=== PATIENT | male | born 1930 | race African-American/Black ===

== ENCOUNTER 2018-02-20 08:43 | Inpatient (IN) | payer OTHER, BC ==
[~2018-02-20] VITALS: Ht 175.3 cm; Wt 63.7 kg
--- NOTE | ~2018-02-20 | 2DMMODE ---
[facility] [address] [place] [address] 2 D/M-MODE ECHOCARDIOGRAM Name: ED SCHMIDT Room #: 461-P ADM IN M.R.#: [id number] Admission: 02/20/18 Attend Phys: Jenn Foster MD Discharge: Date of : 32 Date of Service: 02/21/18 1414 Report #: [id number] THIS REPORT FOR: //name// APPROVED REPORT Study performed: 02/21/2018 12:40:23 EXAM: Comprehensive 2D, Doppler, and color-flow Echocardiogram Patient Location: Bedside Room #: 461 Status: routine BSA: 1.78 HR: 89 bpm BP: 92/57 mmHg Rhythm: Highly irregular Other Information Study Quality: Good Technically limited study due to arrhythmia. Indications Murmur, syncope, hypertension. 2D Dimensions RVDd: 33.52 mm LVEF(%): 70.77 (>50%) IVSd: 19.40 (7-11mm) LVOT Diam: 20.90 (18-24mm) LVDd: 41.15 mm PWd: 10.58 (7-11mm) Ascending Ao: 37.56 (22-36mm) LVDs: 24.80 (25-40mm) Aortic Root: 39.60 mm Faria's LVEF: 70.77 % Volumes Left Atrial Volume (Systole) Single Plane 4CH: 52.58 mL Single Plane 2CH: 61.86 mL LA ESV Index: 35.00 mL/m2 Aortic Valve AoV Peak Jaciel.: 3.64 m/s AO Peak Gr.: 53.05 mmHg Mitral Valve E/A Ratio: 0.4 MV Decel. Time: 415.41 ms MV E Max Jaciel.: 0.42 m/s [facility] [address] [place] [address] 2 D/M-MODE ECHOCARDIOGRAM Name: ED SCHMIDT Room #: 461-P ADM IN ..#: [id number] Admission: 02/20/18 Attend Phys: Jenn Foster MD Discharge: Date of : 32 Date of Service: 02/21/18 1414 Report #: [id number] A Jaciel.: 0.96 m/s MV PHT: 120.47 ms IVRT: 96.89 ms Pulmonary Valve PV Peak Jaciel.: 1.73 m/s PV Peak Gr.: 11.99 mmHg Left Ventricle The left ventricle is normal size. Severe septal hypertrophy is present. Systolic anterior motion of the mitral valve is present causing a varying obstructive gradient with his arrythmia. Highest recorded peak pressure gradient is 180mmHg and a mean gradient of 92mmHg. Left ventricular systolic function is normal. LVEF is 65%. Mild diastolic dysfunction is present (impaired relaxation pattern). Right Ventricle The right ventricle is normal size. The right ventricular systolic function is normal. Atria Left atrium is mildly dilated. The right atrium size is normal. Aortic Valve The Aortic valve is mildly sclerotic. No aortic regurgitation is present. There is no aortic valvular stenosis. Mitral Valve Mitral valve leaflets are mildly thickened. Systolic anterior motion of the mitral valve is present causing a peak gradient of 180mmHg. Mild mitral regurgitation. No evidence of mitral valve stenosis. Tricuspid Valve The tricuspid valve is normal in structure. Trace tricuspid regurgitation. Unable to assess PA pressure. Pulmonic Valve The pulmonary valve is normal in structure. Trace pulmonic regurgitation. 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 The ascending aorta is at the upper limits of normal. IVC is not well visualized. [facility] [address] [place] [address] 2 D/M-MODE ECHOCARDIOGRAM Name: ED SCHMIDT Room #: 461-P [facility] IN M.R.#: [id number] Admission: 02/20/18 Attend Phys: Jenn Foster MD Discharge: Date of : 32 Date of Service: 02/21/18 1414 Report #: [id number] Pericardium There is no pericardial effusion. <Conclusion> The left ventricle is normal size. Severe septal hypertrophy is present. Systolic anterior motion of the mitral valve is present causing a varying obstructive gradient with his arrythmia. Highest recorded peak pressure gradient is 180mmHg and a mean gradient of 92mmHg. Severe septal hypertrophy is present. Systolic anterior motion of the mitral valve is present causing a varying obstructive gradient with his arrythmia. Highest recorded peak pressure gradient is 180mmHg and a mean gradient of 92mmHg. LVEF is 65%. Mild diastolic dysfunction is present (impaired relaxation pattern). The right ventricle is normal size. Left atrium is mildly dilated. The Aortic valve is mildly sclerotic. Mitral valve leaflets are mildly thickened. Systolic anterior motion of the mitral valve is present causing a peak gradient of 180mmHg. Mild mitral regurgitation. No aortic regurgitation is present. The tricuspid valve is normal in structure. 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 There is no pericardial effusion. <ELECTRONICALLY SIGNED> By: Brian Serrano MD, FACC 02/21/18 1414 1414 1414 Brian Serrano MD, FACC /INF
--- NOTE | ~2018-02-20 | HC ---
[facility] [place] [address] [place] [address] CONSULTATION Name: ED SCHMIDT Room #: 461-P ADM IN M.R.#: [id number] Admission: 02/20/18 Attend Phys: Jenn Foster MD Discharge: Date of : 31 Report #: [id number] THIS REPORT FOR: //name// CC: Jenn Foster DATE OF SERVICE: 02/21/2018 PERSONAL PHYSICIAN: Jenn Foster MD CHIEF COMPLAINT: Right lateral ankle ulcer. HISTORY OF PRESENT ILLNESS: This is an 88-year-old black male who is currently receiving rehabilitation at [facility] after he recently fell at home and was treated for pneumonia. The patient was brought to the Emergency Department after he had an episode of syncope and unresponsiveness. The patient on admission was also noted to have right lateral ankle ulcer, which we have been asked to assist in the care. The patient states that the ankle ulcer has been there for several months. The patient states he has currently been receiving [facility]. The patient states he is unsure of what they are doing except for "appointment." The patient does complain of pain associated with the ulceration without radiation. Describes the pain as a burning type pain. The patient denies any other associated ulcerations at this time. PAST MEDICAL HISTORY: Significant for hypertension, gastroesophageal reflux disease, venous insufficiency, muscle weakness. CURRENT MEDICATIONS: Multiple, I reviewed the patient's medication list. DRUG ALLERGIES: None. SOCIAL HISTORY: The patient smokes 1 pack of cigarettes daily, does not drink, but quit approximately 10 years ago, does not drink alcohol. FAMILY HISTORY: Not pertinent to current medical condition. REVIEW OF SYSTEMS: CONSTITUTIONAL: The patient denies fevers or chills. NEUROLOGIC: The patient complains of overall generalized weakness, but no isolated weakness in arms or legs. EYES: No complaints. ENT: No complaints. CARDIAC: The patient denies chest pain, palpitations, peripheral edema. RESPIRATORY: The patient denies shortness of breath, cough, wheezes. GASTROINTESTINAL: The patient denies nausea, vomiting or abdominal pain. GENITOURINARY: The patient denies urgency, frequency. MUSCULOSKELETAL: No complaints. [facility] [address] [place] [address] CONSULTATION Name: ED SCHMIDT Room #: 461-P [facility] IN M.R.#: [id number] Admission: 02/20/18 Attend Phys: Jenn Foster MD Discharge: Date of : 31 Report #: [id number] SKIN: There is a chronic ulcer on the right lateral ankle. PHYSICAL EXAMINATION: VITAL SIGNS: Stable. The patient is afebrile. GENERAL: This is an alert and oriented x 3 elderly black male who is in no acute distress. HEENT: Normocephalic, atraumatic. Mucous membranes are dry. Pupils are round. Sclerae are white. NECK: Supple, no JVD. BACK: Nontender. LUNGS: Clear. HEART: Regular, without murmur. ABDOMEN: Soft, nontender. EXTREMITIES: The patient moves all extremities without difficulty. Distal pulses are faint. Dorsalis pedis and posterior tibial on the bilateral heels are intact. On evaluation of the right lateral ankle, there is a small superficial ulceration which measures approximately 0.5 x 0.5 cm. It is exquisitely tender to palpation without overt signs of cellulitis. There is minimal amount of serosanguineous drainage noted. There is no purulence. There is no fluctuance, no undermining or tunneling. NEUROLOGIC: Cranial nerves 2-12 grossly intact. Motor and sensory grossly intact. LABORATORY VALUES: White count 12.9, hemoglobin 11.0, albumin 2.9. Arterial Doppler shows that there is biphasic to triphasic flow to both ankles. IMPRESSION: 1. Chronic ulceration, right lateral ankle limited to breakdown of skin. 2. Venous insufficiency. 3. Generalized debility status post fall. 4. Protein-calorie malnutrition -- mild. PLAN: At this time, we will start Optifoam Ag to the right lateral ankle, place this Saturday, Saturday and Saturday. We will make sure we maximize the patient's oral protein supplementation for healing. We will continue to follow the patient and continue all of his other current medications. By: 1309 1753 Jose Navas MD /brodie
--- NOTE | ~2018-02-20 | EEG ---
[facility] [address] [place] [address] ELECTROENCEPHALOGRAM Name: ED SCHMIDT Room #: 461-P ADM IN M.R.#: [id number] Admission: 02/20/18 Attend Phys: Jenn Foster MD Discharge: Date of : 31 Report #: [id number] THIS REPORT FOR: //name// CC: Jenn Foster DATE OF SERVICE: 02/22/2018 This patient is being evaluated for syncope. EEG was done by placing the electrode by standard 10-20 system of electrode placement. Both referential and sequential montages were used for recording. Background activity in this patient's EEG is about 9 Hz and 30 microvolts. The patient went to sleep that is associated with bilaterally symmetrical sleep spindle and vertex sharp waves. Photic stimulation is unremarkable. Throughout the record, no active epileptiform activity was noticed. IMPRESSION: This patient's EEG is intermixed with a moderate amount of slowing on both sides. That is a nonspecific abnormality, which can occur with encephalopathy, effect of psychotropic medication, dementia, etc. Clinical correlation is recommended. <ELECTRONICALLY SIGNED> By: Austyn Guido MD 02/24/18 0943 [id number] Austyn Guido MD /nt
--- NOTE | ~2018-02-20 | EKG ---
[place] [address] [facility] [employer] [address] ELECTROCARDIOGRAM REPORT Name: ED SCHMIDT Room #: 461-P ADM IN M.R.#: [id number] Admission: 02/20/18 Attend Phys: Jenn Foster MD Discharge: Date of : 31 Report #: [id number] THIS REPORT FOR: //name// [facility] ED Test Date: 2018-02-20 Test Time: 09:08:52 Pat Name: ED SCHMIDT Department: Room: Gender: M Proposal Lead Writer: nabila : 1930 Requested By: Oscar Golden Order Number: [id number] MD: Monty Collazo Measurements Intervals [place] Rate: 61 P: 8 IN: 125 QRS: 80 QRSD: 134 T: 31 QT: 482 QTc: 486 Interpretive Statements Sinus rhythm Right bundle branch block Probable inferior infarct, old Lateral infarct, recent Borderline ST elevation, anterior leads No previous ECG available for comparison Electronically Signed On 02-20-2018 13:07:37 CDT by Monty Collazo [email or web address] <ELECTRONICALLY SIGNED> By: Monty Collazo MD 02/20/18 1307 7 7 Monty Collazo MD /DHEERAJ
--- NOTE | ~2018-02-20 | HC ---
[facility] [place] [address] CONSULTATION Name: ED SCHMIDT Room #: 461-[facility] IN M.R.#: [id number] Admission: 02/20/18 Attend Phys: Jenn Foster MD Discharge: Date of : 31 Report #: [id number] THIS REPORT FOR: //name// CC: Jenn Foster DATE OF SERVICE: 02/21/2018 HISTORY OF PRESENT ILLNESS: This is an 88-year-old male patient who was evaluated by me for any neurological etiology for the patient's syncope. His records were reviewed. It looks like this patient has memory disturbances. He was recuperating at the [facility] and some shakiness was noticed. It is not clear whether that was seizures or not. He did become unresponsive during that time. Apparently, he was sitting that time. Cardiology is working him up. His blood pressure was low at that time. He did not have any associated headache. This one came spontaneously without any trauma. REVIEW OF SYSTEMS: Indicate that he has a generalized weakness. He walks with a walker. He is blind in the right eye. He has a history of hypertension. He has GERD. He has a history of falls. His 14-point review of system was carried out and this was his relevant 14-point review of system. PAST MEDICAL HISTORY: Looks like he has memory disturbances and difficulty with walking. FAMILY HISTORY: Negative for any myopathy. SOCIAL HISTORY: He denies the use of alcohol. He said he used to smoke. PHYSICAL EXAMINATION: NEUROLOGICAL: Indicate he can tell me what month it is. He could not tell me what hospital he is in. He could not name the president. His speech looks intact. His fund of knowledge and memory is unremarkable. Cranial nerve examination 2 through 12 indicate blindness in the right eye. He moves all 4 extremities. He did not do very well with the position sense in either lower extremity, especially on the left side. His reflexes are diminished. His tone looks unremarkable. He has no cerebellar sign. His strength is 4/5. He could not cooperate with the fundus on the left side. He has no meningeal sign. NECK: He has no thyroid mass. GENERAL: He is moderately built individual who does not have any dysmorphic features of eyes, ears and face. EXTREMITIES: His pulses could not be felt in the lower extremities. He has no edema, cyanosis or jaundice. CARDIAC: Examination is unremarkable. LUNGS: He does not have any respiratory difficulty or rhonchi. VITAL SIGNS: Blood pressure is 132/71, respirations 16, pulse is 66 [place] 97.7[place] [address] CONSULTATION Name: ED SCHMIDT Room #: [facility] ADM IN M.R.#: [id number] Admission: 02/20/18 Attend Phys: Jenn Foster MD Discharge: Date of : 31 Report #: [id number] LABORATORY DATA: His white count is 12.9, which is somewhat elevated. His sodium is 132. IMPRESSION: Clinically, it does not look like the patient's syncope was primary neurological in origin. He may have had hypotension causing hypoperfusion to the brain and that may have led to his syncope and seizure-like activity. However, it happened when he was lying down and it is desirable to work up. I will suggest doing an MRI/MRA and an EEG if it can be done. I discussed that with the patient and he states there is no contraindication for MRI and we will try to schedule that. RECOMMENDATIONS: 1. MRI. 2. EEG. 3. This patient also appeared to have dementia and we will do vitamin B12. TSH is already done. We will follow up and see if we have any further recommendation. Thank you very much for this referral. <ELECTRONICALLY SIGNED> By: Austyn Guido MD 02/24/18 0943 2048 [id number] Austyn Guido MD /nt
[2018-02-20 08:45] VITALS: BP 97/53
[2018-02-20 08:59] LABS: HEMATOCRIT 33.3 % (42.0-52.0); HEMOGLOBIN 11.7 gm/dL (14.0-18.0); MCH 31.1 pg (26.0-34.0); MCHC 35.1 g/dL (28.0-37.0); MCV 88.5 fL (80.0-100.0); PLATELET COUNT 240 thou/uL (150-400); RBC 3.76 mil/uL (4.50-6.00); WBC 7.2 thou/uL (4.0-11.0)
[2018-02-20 09:18] LABS: ANION GAP 7 mmol/L (7-16); BUN 31 mg/dL (7-18); CALCIUM 9.6 mg/dL (8.5-10.1); CHLORIDE 103 mmol/L (98-107); CO2 31 mmol/L (21-32); CREATININE 1.2 mg/dL (0.7-1.3); GLUCOSE 116 mg/dL (74-106); POTASSIUM 3.3 mmol/L (3.5-5.1); SODIUM 141 mmol/L (136-145)
[2018-02-20 09:27] LABS: ALBUMIN 2.9 g/dL (3.4-5.0); MAGNESIUM 1.9 mg/dL (1.8-2.4); SGOT 17 U/L (15-37); SGPT 16 U/L (30-65); TOTAL BILIRUBIN 0.6 mg/dL (<0.1-1.0); TOTAL PROTEIN 6.9 g/dL (6.4-8.2); TROPONIN-I <0.06 ng/mL (<0.06)
[2018-02-20 09:52] LABS: ABSOLUTE NEUTROPHILS 5.5 thou/uL (1.4-8.2); PLATELET ESTIMATE NORMAL
[2018-02-20] MEDS ORDERED: LIDODERM1 EACH TOP (10:11)
[2018-02-20] MEDS ORDERED: COLACE100 MG PO (10:12)
[2018-02-20] MEDS ORDERED: HYDROCODONE-AP1 EAC6 PO (10:12)
[2018-02-20] MEDS ORDERED: JUVEN PACKET1 EAC1 PO (10:13)
[2018-02-20] MEDS ORDERED: BISACODYL SUPP10 MG RECTAL (10:13)
[2018-02-20] MEDS ORDERED: ASPIRIN81 M2 PO (10:14)
[2018-02-20] MEDS ORDERED: VITAMIN D1000 UNI1 PO (10:14)
[2018-02-20 10:20] LABS: URINE BILIRUBIN NEGATIVE (Negative); URINE BLOOD TRACE (Negative); URINE CLARITY SL CLOUDY; URINE COLOR YELLOW; URINE GLUCOSE-RANDOM* NEGATIVE (Negative); URINE KETONES NEGATIVE (Negative); URINE NITRITE-REFLEX NEGATIVE (Negative); URINE PROTEIN (DIPSTICK) 2+ (Negative); URINE SPECIFIC GRAVITY <= 1.005 (1.005-1.035); URINE UROBILINOGEN 0.2 E.U./dl (0.2-1.0)
[2018-02-20 10:21] LABS: URINE LEUKOCYTES-REFLEX 1+ (Negative)
[2018-02-20] MEDS ORDERED: FLONASE 0.05%50 MCG NASAL (10:28)
[2018-02-20] MEDS ORDERED: HYDROCHLOROTH12.5 M1 PO (10:28)
[2018-02-20 10:29] VITALS: BP 99/62
[2018-02-20] MEDS ORDERED: PROTONIX40 M1 PO (10:29)
[2018-02-20] MEDS ORDERED: LISINOPRIL20 MG PO (10:29)
[2018-02-20] MEDS ORDERED: CENTRUM SILVER1 EAC2 PO (10:29)
[2018-02-20] MEDS ORDERED: DETROL2 M1 PO (10:30)
[2018-02-20] MEDS ORDERED: LEVOBUNOLOL 0.5%5 M1 OPHTHALMIC (10:30)
[2018-02-20 10:31] LABS: AMORPHOUS PHOSPHATES Moderate /LPF (None Seen); BACTERIA-REFLEX 1-9 Few /HPF (None Seen); CASTS None Seen /LPF (None Seen); SQUAMOUS None Seen /LPF (0-3); TRIPLE PHOSPHATE CRYSTALS 0-3 Few /LPF (None Seen); URINE RBC None Seen /HPF (0-2); URINE WBC-REFLEX 0-5 Rare /HPF (0-5)
[2018-02-20] MEDS ORDERED: SSD CREAM 1% 5050 GM TOP (10:31)
[2018-02-20] MEDS ORDERED: VOLTAREN GEL 1100 G2 TOP (10:33)
[2018-02-20] MEDS ORDERED: MILK OF MA2400 MG/10 PO (10:34)
[2018-02-20] MEDS ORDERED: TYLENOL325 MG PO (10:34)
[2018-02-20 16:55] VITALS: BP 149/83
[2018-02-20 19:22] VITALS: BP 154/85
[2018-02-21 00:04] VITALS: BP 107/67
[2018-02-21 04:59] VITALS: BP 107/65
[2018-02-21 05:42] LABS: CALCIUM 8.7 mg/dL (8.5-10.1); CREATININE 1.1 mg/dL (0.7-1.3); POTASSIUM 4.2 mmol/L (3.5-5.1)
[2018-02-21 05:51] LABS: HEMATOCRIT 33.4 % (42.0-52.0); MCH 30.3 pg (26.0-34.0); RBC 3.63 mil/uL (4.50-6.00); RDW 12.9 % (10.5-14.5); WBC 12.9 thou/uL (4.0-11.0)
[2018-02-21 08:00] VITALS: BP 92/57
[2018-02-21 15:56] VITALS: BP 111/76
[2018-02-21 16:00] VITALS: BP 120/66
[2018-02-21 20:30] VITALS: BP 132/71
[2018-02-22 04:38] VITALS: BP 129/74
[2018-02-22 07:43] VITALS: BP 138/78
[2018-02-22 15:27] VITALS: BP 110/57
[2018-02-22 19:36] VITALS: BP 105/54
[2018-02-23 06:13] VITALS: BP 152/82
[2018-02-23 08:00] VITALS: BP 141/62
[2018-02-23 16:00] VITALS: BP 145/66
[2018-02-23 20:13] VITALS: BP 138/54
[2018-02-24 02:58] VITALS: BP 137/85
[2018-02-24 08:00] VITALS: BP 154/60
[2018-02-24] MEDS ORDERED: CEFUROXIME250 MG PO (14:21)
[2018-02-24] MEDS ORDERED: ATENOLOL 50MG T50 MG PO (14:21)
[2018-02-24] MEDS ORDERED: LACTINEX CHEWA1 EACH PO (14:34)
== END 2018-02-24 18:01 | DRG 314 ==
LOC: ER 08:43 → 4W 10:13 → EROBS 10:13 → 4W 10:55
PROVIDERS: Emergency Medicine; Internal Medicine
DX: I95.9 Hypotension, unspecified (principal); G93.40 Encephalopathy, unspecified; N39.0 Urinary tract infection, site not specified; S12.100A Unspecified displaced fracture of second cervical vertebra, initial encounter for closed fracture; S12.000A Unspecified displaced fracture of first cervical vertebra, initial encounter for closed fracture; L97.311 Non-pressure chronic ulcer of right ankle limited to breakdown of skin; E44.1 Mild protein-calorie malnutrition; I10 Essential (primary) hypertension; K21.9 Gastro-esophageal reflux disease without esophagitis; H40.9 Unspecified glaucoma; H54.7 Unspecified visual loss; I87.2 Venous insufficiency (chronic) (peripheral); F17.290 Nicotine dependence, other tobacco product, uncomplicated; G89.29 Other chronic pain; M54.2 Cervicalgia; R01.1 Cardiac murmur, unspecified; E86.9 Volume depletion, unspecified; F03.90 Unspecified dementia, unspecified severity, without behavioral disturbance, psychotic disturbance, mood disturbance, and anxiety; G62.9 Polyneuropathy, unspecified; B96.4 Proteus (mirabilis) (morganii) as the cause of diseases classified elsewhere; Z68.20 Body mass index [BMI] 20.0-20.9, adult; Z79.82 Long term (current) use of aspirin; Z79.899 Other long term (current) drug therapy; W18.39XA Other fall on same level, initial encounter; Y93.89 Activity, other specified; Y92.89 Other specified places as the place of occurrence of the external cause; Y99.8 Other external cause status
CPT/HCPCS: 10045

== ENCOUNTER 2018-03-22 13:23 | Emergency (ER) | payer OTHER, BC ==
[~2018-03-22] VITALS: Ht 152.4 cm; Wt 68.0 kg
[~2018-03-22 13:23] MED LIST: ASPIRIN81 M2 PO; ATENOLOL 50MG T50 MG PO; BISACODYL SUPP10 MG RECTAL; CEFUROXIME250 MG PO; CENTRUM SILVER1 EAC2 PO; COLACE100 MG PO; DETROL2 M1 PO; FLONASE 0.05%50 MCG NASAL; HYDROCHLOROTH12.5 M1 PO; HYDROCODONE-AP1 EAC6 PO; JUVEN PACKET1 EAC1 PO; LACTINEX CHEWA1 EACH PO; LEVOBUNOLOL 0.5%5 M1 OPHTHALMIC; LIDODERM1 EACH TOP; LISINOPRIL20 MG PO; MILK OF MA2400 MG/10 PO; PROTONIX40 M1 PO; SSD CREAM 1% 5050 GM TOP; TYLENOL325 MG PO; VITAMIN D1000 UNI1 PO; VOLTAREN GEL 1100 G2 TOP
[2018-03-22 17:32] LABS: URINE BILIRUBIN NEGATIVE (Negative); URINE BLOOD 3+ (Negative); URINE CLARITY CLEAR; URINE COLOR YELLOW; URINE GLUCOSE-RANDOM* NEGATIVE (Negative); URINE KETONES NEGATIVE (Negative); URINE NITRITE-REFLEX NEGATIVE (Negative); URINE PROTEIN (DIPSTICK) 1+ (Negative); URINE UROBILINOGEN 0.2 E.U./dl (0.2-1.0)
[2018-03-22 17:34] LABS: URINE LEUKOCYTES-REFLEX 1+ (Negative)
[2018-03-22 17:44] LABS: BACTERIA-REFLEX None Seen /HPF (None Seen); CASTS None Seen /LPF (None Seen); CRYSTALS None Seen /LPF (None Seen); SQUAMOUS None Seen /LPF (0-3); URINE RBC >20 Many /HPF (0-2)
== END 2018-03-22 18:17 ==
LOC: ER 13:23
PROVIDERS: Emergency Medicine
DX: Z46.6 Encounter for fitting and adjustment of urinary device (principal); I10 Essential (primary) hypertension; K21.9 Gastro-esophageal reflux disease without esophagitis; I87.2 Venous insufficiency (chronic) (peripheral); Z87.891 Personal history of nicotine dependence